=== PATIENT | male | born 1950 | race Caucasian/White ===

== ENCOUNTER 2017-07-18 16:17 | Emergency (ER) | payer OTHER ==
[2017-07-18] MEDS ORDERED: ONDANSETRON HCL 4 MG/2 ML VIAL ONE ×2 (16:41→17:39)
[2017-07-18 17:07] LABS: BASOPHILS % (AUTO) 0.2 % (0.0-5.0); EOSINOPHILS % (AUTO) 1.1 % (0.0-8.0); HEMATOCRIT 39.3 % (42-54); LYMPHOCYTES % (AUTO) 12.4 % (21.0-51.0); MEAN CORPUSCULAR HEMOGLOBIN 28.1 pg (27.0-33.0); MEAN CORPUSCULAR VOLUME 82.7 fL (79-99); MONOCYTES % (AUTO) 3.7 % (3.0-13.0); NEUTROPHILS % (AUTO) 82.6 % (40.0-77.0); PLATELET COUNT (AUTO) 203 K/uL (130-400); RED BLOOD CELL COUNT(AUTO) 4.76 MIL/uL (4.50-6.20); RED CELL DISTRIBUTION WIDTH 15.7 % (11.0-15.5); WHITE BLOOD COUNT (AUTO) 9.8 K/uL (4.8-10.8)
[2017-07-18 17:15] LABS: CREATININE 0.8 mg/dL (0.5-1.5); POTASSIUM 3.8 mmol/L (3.5-5.1)
[2017-07-18 17:17] LABS: PARTIAL THROMBOPLASTIN TIME 26.6 SEC (26.3-35.5); PROTHROMBIN TIME 10.5 SEC (9.6-11.6)
[2017-07-18 17:17] LABS: APPEARANCE,URINE Clear (CLEAR); BILIRUBIN,URINE Negative (NEGATIVE); COLOR,URINE Yellow (YELLOW); GLUCOSE, URINE (UA) Negative (NEGATIVE); KETONES,URINE Trace mg/dL (NEGATIVE); LEUKOCYTE ESTERASE ,URINE Negative (NEGATIVE); NITRATE,URINE Negative (NEGATIVE); OCCULT BLOOD,URINE Negative (NEGATIVE); PH,URINE 8.5 (5.0-8.0); PROTEIN,URINE POS 2+ (NEGATIVE); UROBILINOGEN,URINE 0.2 mg/dL (0.2-1.0)
[2017-07-18 17:28] LABS: ALBUMIN 4.7 g/dL (3.5-5.0); BILIRUBIN,TOTAL 0.5 mg/dL (0.2-1.0); CREATINE KINASE MB 1.3 ng/mL (0.5-3.6); TOTAL PROTEIN, SERUM 9.2 g/dL (6.0-8.3)
[2017-07-18] MEDS ORDERED: DiphenhydrAMINE HCL 50 MG/ML VIAL ONE (17:38)
[2017-07-18] MEDS ORDERED: METOCLOPRAMIDE 10 MG TABLET ONE (17:39)
[2017-07-18 17:41] LABS: BACTERIA,URINE Rare /HPF (None Seen); RBC,URINE 0-1 /HPF (0-1); SQUAMOUS EPITHELIAL CELL,UR Rare /LPF (0-2); WBC,URINE 0-1 /HPF (0-1)
[2017-07-18] MEDS ORDERED: KETOROLAC TROMETHAMINE 15MG/ML ONE (18:45)
[2017-07-18] MEDS ORDERED: MORPHINE SULFATE 2 MG/ML 1ML SYG ONE (18:45)
== END 2017-07-18 21:48 | disposition home or self-care (01) ==
LOC: EDH 16:17
DX: R51 Headache (principal); R11.2 Nausea with vomiting, unspecified; E11.9 Type 2 diabetes mellitus without complications; I25.10 Atherosclerotic heart disease of native coronary artery without angina pectoris; E78.5 Hyperlipidemia, unspecified; Z79.84 Long term (current) use of oral hypoglycemic drugs; Z79.899 Other long term (current) drug therapy; Z87.891 Personal history of nicotine dependence
CPT/HCPCS: 36415; 70450; 80053; 81001; 82150; 82550; 82553; 84484; 85025; 85610; 85730; 87804 ×2; 93005; 96374; 96375; 96376; 99285; J1200; J1885; J2405 ×2

== ENCOUNTER 2018-12-18 17:20 | Inpatient (IN) | payer MEDICARE ==
[~2018-12-18] VITALS: Ht 175.3 cm; Wt 66.0 kg
[2018-12-18] MEDS ORDERED: NITROGLYCERIN 0.4 MG SL TAB SL ONE (17:38)
[2018-12-18 17:44] LABS: BASOPHILS % (AUTO) 0.7 % (0.0-5.0); EOSINOPHILS % (AUTO) 4.6 % (0.0-8.0); HEMATOCRIT 35.5 % (42-54); LYMPHOCYTES % (AUTO) 30.5 % (21.0-51.0); MEAN CORPUSCULAR HEMOGLOBIN 29.5 pg (27.0-33.0); MEAN CORPUSCULAR HGB CONC 33.5 g/dL (32.0-36.0); MEAN CORPUSCULAR VOLUME 88.1 fL (79-99); MONOCYTES % (AUTO) 9.3 % (3.0-13.0); NEUTROPHILS % (AUTO) 54.9 % (40.0-77.0); NUCLEATED RED BLOOD CELLS 0.1 % (0.0-0.19); PLATELET COUNT (AUTO) 176 K/uL (130-400); RED BLOOD CELL COUNT(AUTO) 4.03 MIL/uL (4.50-6.20); RED CELL DISTRIBUTION WIDTH 13.5 % (11.0-15.5); WHITE BLOOD COUNT (AUTO) 5.5 K/uL (4.8-10.8)
[2018-12-18] MEDS ORDERED: ACETAMINOPHEN 325 MG TAB ONE (17:47)
[2018-12-18] MEDS ORDERED: ASPIRIN 325 MG TABLET ONE (17:53)
[2018-12-18 18:05] LABS: CREATININE 0.9 mg/dL (0.5-1.5)
[2018-12-18 18:08] LABS: INR 1.01 (0.85-1.15); PROTHROMBIN TIME 10.6 SEC (9.6-11.6)
[2018-12-18 18:16] LABS: ALBUMIN 3.9 g/dL (3.5-5.0); BILIRUBIN,TOTAL 0.4 mg/dL (0.2-1.0); TOTAL PROTEIN, SERUM 7.6 g/dL (6.0-8.3)
[2018-12-18 18:21] LABS: PARTIAL THROMBOPLASTIN TIME 28.7 SEC (26.3-35.5)
[2018-12-18 18:50] LABS: B-TYPE NATRIURETIC PEPTIDE 59 pg/mL (0-100)
[2018-12-18 19:30] LABS: APPEARANCE,URINE Clear (CLEAR); BILIRUBIN,URINE Negative (NEGATIVE); COLOR,URINE Yellow (YELLOW); GLUCOSE, URINE (UA) Negative (NEGATIVE); KETONES,URINE Negative (NEGATIVE); LEUKOCYTE ESTERASE ,URINE Moderate (NEGATIVE); NITRATE,URINE Negative (NEGATIVE); OCCULT BLOOD,URINE Negative (NEGATIVE); PH,URINE 6.5 (5.0-8.0); PROTEIN,URINE Negative (NEGATIVE)
[2018-12-18 19:37] LABS: AMPHET/METH SCREEN,URINE NEGATIVE (NEGATIVE); BARBITURATE SCREEN, URINE NEGATIVE (NEGATIVE); BENZODIAZEPINES SCREEN,URINE NEGATIVE (NEGATIVE); CANNABINOID SCREEN,URINE NEGATIVE (NEGATIVE); COCAINE SCREEN,URINE NEGATIVE (NEGATIVE); OPIATE SCREEN,URINE NEGATIVE (NEGATIVE); PHENCYCLIDINE SCREEN,URINE NEGATIVE (NEGATIVE)
[2018-12-18 20:04] LABS: BACTERIA,URINE Rare /HPF (None Seen); RBC,URINE 0-1 /HPF (0-1)
[2018-12-18 20:05] LABS: SQUAMOUS EPITHELIAL CELL,UR Rare /HPF (0-2)
[2018-12-18] MEDS ORDERED: ENOXAPARIN SODIUM 100 MG/1 ML SQ ONE (21:13)
[2018-12-18] MEDS ORDERED: HYDRALAZINE HCL 20 MG/ML VIAL IV PRN (23:15)
[2018-12-18] MEDS ORDERED: MORPHINE SULFATE 2 MG/ML 1ML SYG IV PRN (23:15)
[2018-12-18] MEDS ORDERED: MORPHINE SULFATE 4 MG/1ML SYG IV PRN (23:15)
[2018-12-18 23:58] LABS: CREATINE KINASE, TOTAL 178 U/L (21-232); MYOGLOBIN 50 ng/mL (10-92); TROPONIN I < 0.04 ng/mL (0.00-0.06)
[2018-12-19] VITALS (8 sets, daily range): BP systolic 113–173; BP diastolic 65–89
[2018-12-19] MEDS ORDERED: NITROGLYCERIN 0.4 MG SL TAB SL PRN
--- NOTE | 2018-12-19 00:10 | NUR ---
Admission Assessment Received pt from ED with no family around for Unstable Angina. Routine admission assessment done, plan of care discuss & updated with all the test & radiologic studies done in ED. Pt made aware he is pending to be seen by a supervisory geographer, Dr. Oscar Cortes. I verified with pt is he has his own supervisory geographer, stated he can't remember the name one from [place]. Pt claimed started to have chest pain, pressure unto the chest area around 1600 that does not want to go away reason of coming in, as he claimed prior to his CABG in the past same chest pain he had felt. Pt reminded to remain NPO for now in case he will need some procedure later during the day, agreed. Pt currently denies discomfort.
[2018-12-19] MEDS: SODIUM CHLORIDE 0.9% 1000ML 1,000 ML IV SCH ×2 (00:44→19:11)
[2018-12-19] MEDS ORDERED: AEC81 PO (01:46)
[2018-12-19] MEDS ORDERED: ACET-2743 PO (01:46)
[2018-12-19] MEDS ORDERED: ATOR10TA69 PO (01:46)
[2018-12-19] MEDS ORDERED: METF-444 PO (01:46)
[2018-12-19 02:05] LABS: BASOPHILS % (AUTO) 0.7 % (0.0-5.0); EOSINOPHILS % (AUTO) 5.4 % (0.0-8.0); HEMATOCRIT 37.2 % (42-54); LYMPHOCYTES % (AUTO) 35.7 % (21.0-51.0); MEAN CORPUSCULAR HEMOGLOBIN 29.6 pg (27.0-33.0); MEAN CORPUSCULAR HGB CONC 33.9 g/dL (32.0-36.0); MEAN CORPUSCULAR VOLUME 87.2 fL (79-99); MONOCYTES % (AUTO) 9.8 % (3.0-13.0); NEUTROPHILS % (AUTO) 48.4 % (40.0-77.0); NUCLEATED RED BLOOD CELLS 0.1 % (0.0-0.19); PLATELET COUNT (AUTO) 177 K/uL (130-400); RED BLOOD CELL COUNT(AUTO) 4.27 MIL/uL (4.50-6.20); RED CELL DISTRIBUTION WIDTH 13.5 % (11.0-15.5)
[2018-12-19 02:30] LABS: ALANINE AMINOTRANSFERASE 20 U/L (12-78); ALBUMIN 3.8 g/dL (3.5-5.0); ASPARTATE AMINOTRANSFERASE 19 U/L (10-37); BILIRUBIN,TOTAL 0.4 mg/dL (0.2-1.0); CARBON DIOXIDE 30 mmol/L (21-32); CHLORIDE 103 mmol/L (101-111); CREATINE KINASE, TOTAL 176 U/L (21-232); CREATININE 0.7 mg/dL (0.5-1.5); GLOMERULAR FILTR. RATE CALC 120 mL/min (>60); GLUCOSE,RANDOM 93 mg/dL (70-105); MYOGLOBIN 50 ng/mL (10-92); POTASSIUM 4.3 mmol/L (3.5-5.1); SODIUM SERUM 139 mmol/L (136-145); TOTAL PROTEIN, SERUM 7.6 g/dL (6.0-8.3); TROPONIN I < 0.04 ng/mL (0.00-0.06); UREA NITROGEN, BLOOD 13 mg/dL (7-18)
--- NOTE | 2018-12-19 07:35 | NUR ---
ASSESSMENT ENCOUNTERED PT A&OX 4, CALM COOPERATIVE AND DOES NOT APPEAR TO BE IN ANY DISTRESS NOR ANY NEURO DEFICITS PRESENT. PT DENIES PAIN, SOB, NAUSEA. PT IS AMBULATORY, GAIT STEADY AND STRONG WITH STAND BY ASSIST. PT IS NPO FOR POSSIBLE LEXISCAN. CALL LIGHT WITHIN REACH.
[2018-12-19] MEDS: FAMOTIDINE/PF 20 MG/2 ML VIAL IV SCH ×2 (09:00→21:37)
[2018-12-19] MEDS ORDERED: ASPIRIN 325 MG TABLET PO SCH (09:00)
[2018-12-19] MEDS: ATORVASTATIN CALCIUM 40 MG TABLET PO SCH ×2 (09:00→21:36)
[2018-12-19] MEDS ORDERED: METOPROLOL TARTRATE 25 MG TAB PO SCH (09:00)
[2018-12-19] MEDS: ASPIRIN 81MG TAB.CHEW PO SCH ×2 (10:00→21:36)
[2018-12-19 10:27] LABS: CREATINE KINASE, TOTAL 150 U/L (21-232); MYOGLOBIN 52 ng/mL (10-92); TROPONIN I < 0.04 ng/mL (0.00-0.06)
[2018-12-19] MEDS ORDERED: REGADENOSON 0.4 MG/5 ML PF SYG IVP ONE (13:00)
[2018-12-19] MEDS ORDERED: GLUCAGON 1MG KIT 1 MG ML IM PRN (20:00)
[2018-12-19] MEDS ORDERED: DEXTROSE 50%-WATER 50 ML DISP.SYRIN IV PRN (20:00)
[2018-12-19] MEDS: INSULIN HUMULIN R 100 UNIT/ML 3ML SQ SCH (21:00)
[2018-12-20 04:31] VITALS: BP 127/73
[2018-12-20] MEDS: INSULIN HUMULIN R 100 UNIT/ML 3ML SQ SCH (05:25)
--- NOTE | 2018-12-20 07:30 | NUR ---
ASSESSMENT ENCOUNTERED PT A&OX3, CALM COOPERATIVE AND DOES NOT APPEAR TO BE IN ANY DISTRESS NOR ANY NEURO DEFICITS PRESENT. PT DENIES PAIN, SOB, NAUSEA. PT IS AMBULATORY, GAIT STEADY AND STRONG WITH STAND BY ASSIST. CALL LIGHT WITHIN REACH, FAMILY AT BEDSIDE.
[2018-12-20 07:39] VITALS: BP 137/79
--- NOTE | 2018-12-20 09:00 | NUR ---
DR BARAHONA AT BEDSIDE UPDATE GIVEN, ORDERS RECEIVED
--- NOTE | 2018-12-20 09:15 | NUR ---
DR HADDAD UPDATED ORDERS RECEIVED.
--- NOTE | 2018-12-20 10:00 | NUR ---
DISCHARGE INSTRUCTIONS GIVEN, PIV REMOVED AND INTACT, DISCHARGED HOME TO FAMILY VEHICLE VIA WHEELCHAIR.
== END 2018-12-20 10:24 | disposition home or self-care (01) | DRG 303 ==
LOC: EDH 17:20 → EDHIP 23:11 → INTOOBSV 23:11 → OBSVTOIN 23:11 → 2AH 23:59
PROVIDERS: ADMIT Hospitalist; ATTEND Hospitalist
DX: I25.110 Atherosclerotic heart disease of native coronary artery with unstable angina pectoris (principal); E87.1 Hypo-osmolality and hyponatremia; I10 Essential (primary) hypertension; E11.65 Type 2 diabetes mellitus with hyperglycemia; D64.9 Anemia, unspecified; E78.5 Hyperlipidemia, unspecified; I45.10 Unspecified right bundle-branch block; I95.9 Hypotension, unspecified; Z82.3 Family history of stroke; Z87.891 Personal history of nicotine dependence; Z95.1 Presence of aortocoronary bypass graft; Z79.84 Long term (current) use of oral hypoglycemic drugs; Z79.899 Other long term (current) drug therapy; Z79.82 Long term (current) use of aspirin
CPT/HCPCS: 36415; 71045; 78452; 80053; 80305; 81001; 82550; 82948; 83036; 83874; 83880; 84484; 85025; 85610; 85730; 93005; 93017; 96374; 99291; A9500; G0378; J1650; J2785; J3490; J7030

== ENCOUNTER 2019-02-05 07:33 | Day surgery (SDC) | payer MEDICARE ==
[2019-02-03 11:48] VITALS: BP 150/78
[2019-02-03 11:50] LABS: BASOPHILS % (AUTO) 0.3 % (0.0-5.0); EOSINOPHILS % (AUTO) 4.6 % (0.0-8.0); HEMATOCRIT 36.4 % (42-54); LYMPHOCYTES % (AUTO) 26.1 % (21.0-51.0); MEAN CORPUSCULAR HEMOGLOBIN 29.4 pg (27.0-33.0); MEAN CORPUSCULAR HGB CONC 33.6 g/dL (32.0-36.0); MEAN CORPUSCULAR VOLUME 87.7 fL (79-99); MONOCYTES % (AUTO) 10.6 % (3.0-13.0); NEUTROPHILS % (AUTO) 58.4 % (40.0-77.0); NUCLEATED RED BLOOD CELLS 0.1 % (0.0-0.19); PLATELET COUNT (AUTO) 172 K/uL (130-400); RED BLOOD CELL COUNT(AUTO) 4.15 MIL/uL (4.50-6.20); RED CELL DISTRIBUTION WIDTH 13.7 % (11.0-15.5); WHITE BLOOD COUNT (AUTO) 5.7 K/uL (4.8-10.8)
[2019-02-03 11:51] LABS: APPEARANCE,URINE Clear (CLEAR); BILIRUBIN,URINE Negative (NEGATIVE); COLOR,URINE Yellow (YELLOW); GLUCOSE, URINE (UA) Negative (NEGATIVE); KETONES,URINE Negative (NEGATIVE); LEUKOCYTE ESTERASE ,URINE Large (NEGATIVE); NITRATE,URINE Positive (NEGATIVE); OCCULT BLOOD,URINE Negative (NEGATIVE); PH,URINE 6.5 (5.0-8.0); PROTEIN,URINE Negative (NEGATIVE)
[2019-02-03 11:56] LABS: CREATININE 0.8 mg/dL (0.5-1.5); POTASSIUM 5.2 mmol/L (3.5-5.1)
[2019-02-03 11:56] LABS: BACTERIA,URINE Many /HPF (None Seen); RBC,URINE 0-1 /HPF (0-1); SQUAMOUS EPITHELIAL CELL,UR Rare /HPF (0-2)
[2019-02-03 12:04] LABS: INR 0.98 (0.85-1.15); PARTIAL THROMBOPLASTIN TIME 26.8 SEC (26.3-35.5); PROTHROMBIN TIME 10.3 SEC (9.6-11.6)
--- NOTE | 2019-02-04 14:41 | NUR ---
Spoke to Rafy KLINE and reported potassium of 5.2 and ua of positive nitrates, large leukest and wbc 11-25 and many bacteria, as per Rafy Marcum no order in regards to urine since procedure will be radial and new order for potassium level in morning of procedure.
[~2019-02-05] VITALS: Ht 175.3 cm; Wt 69.3 kg
[2019-02-05] VITALS (8 sets, daily range): BP systolic 110–146; BP diastolic 54–74
[~2019-02-05 07:33] MED LIST: AEC81 PO; ATOR20TA65 PO; LORA10TA7 PO; METF-444 PO; SODIUM CHLORIDE 0.9% 500ML 500 ML IV SCH
[2019-02-05] MEDS ORDERED: NITROGLYCERIN 5 MG/ML 10 ML VIAL IV ONE (08:59)
[2019-02-05] MEDS ORDERED: HEPARIN SODIUM 1000UNIT/ML 10ML VIAL ONE (08:59)
[2019-02-05] MEDS ORDERED: IOHEXOL 350 MG/ML 100ML INFUS..BTL IV ONE ×2 (08:59→12:48)
[2019-02-05] MEDS ORDERED: IOHEXOL-350 50ML VIAL IV ONE (08:59)
[2019-02-05] MEDS ORDERED: LIDOCAINE HCL 2% 20ML ONE (08:59)
[2019-02-05] MEDS ORDERED: VERAPAMIL HCL 2.5 MG/ML VIAL ONE (09:12)
--- NOTE | 2019-02-05 11:11 | NUR ---
PT LEFT VIA BED TO GORE CUTTER
[2019-02-05] MEDS ORDERED: MIDAZOLAM HCL 1 MG/ML 2ML VIAL ONE (11:59)
[2019-02-05] MEDS ORDERED: FENTANYL CITRATE PF 50 MCG/1 ML 2ML VIAL ONE (11:59)
[2019-02-05] MEDS ORDERED: SODIUM CHLORIDE 0.9% 1000ML 1,000 ML IV SCH (13:22)
--- NOTE | 2019-02-05 14:00 | NUR ---
PT C/O SEEING BLURRY AND SPOTS. DR. WARREN PAGED
--- NOTE | 2019-02-05 14:08 | NUR ---
PAGED CHIQUIS KLINE, D/T NO CALL BACK FROM DR. WARREN. SPOKE TO CHIQUIS KLINE HE IS AWARE PATIENT IS SEEING BLURRY AND SEEING SPOTS. NEURO CHECKS WERE DONE AND WERE NEGATIVE. NO NEW ORDERS AT THIS TIME.
--- NOTE | 2019-02-05 14:13 | NUR ---
PT. STATE BLURRINESS IS RESOLVED. WILL CONTINUE TO MONITOR.
--- NOTE | 2019-02-05 14:40 | NUR ---
DR. GARNER CAME TO SEE PT. IS AWARE OF PT SYMPTOMS OF BLURRINESS AND SPOTS IN VISION AND ARE NOW RESOLVED. DR. GARNER ALSO CHANGED THE IV FLUIDS FROM 4 HRS TO 2 HRS.
--- NOTE | 2019-02-05 14:50 | NUR ---
PT. IS RESTING WELL SITE IS DRY AND INTACT. TR BAND IS APPLIED ON THE LEFT WRIST WITH 14 CC OF AIR. 2 CC HAS BEEN REMOVED. V/S STABLE NO BLEEDING WILL CONTINUE TO MONITOR.
--- NOTE | 2019-02-05 15:10 | NUR ---
PT . TR BAND IS DRY AND INTACT REMOVED 2 CC OF AIR. V/S ARE STABLE WILL CONTINUE TO MONITOR.
--- NOTE | 2019-02-05 15:25 | NUR ---
REMOVED 2 ML FROM TR BAND SITE IS DRY AND INTACT, WILL CONTINUE TO MONITOR PATIENT.
--- NOTE | 2019-02-05 19:44 | NUR ---
PT AAOX3 , NO C/O PAIN TO CATH SITE. SITE TO LT WRIST IS D/I NO ACTIVE BLEEDING OR HEMATOMA. PT STABLE. PT AND GIVE POST CARE INSTRUCTIONS BY CHEY TREVINO. BOTH VERBALIZED UNDERSTANDING. PT DRESSED BY BEDSIDE, PLACED IN WHEELCHAIR AND DRIVEN HOME BY .
== END 2019-02-05 17:30 | disposition home or self-care (01) ==
LOC: DAH 07:33
PROVIDERS: ATTEND Internal Medicine Cardiovascular Disease
DX: I25.118 Atherosclerotic heart disease of native coronary artery with other forms of angina pectoris (principal); Z79.84 Long term (current) use of oral hypoglycemic drugs; Z79.82 Long term (current) use of aspirin; Z79.899 Other long term (current) drug therapy; Z87.891 Personal history of nicotine dependence; Z82.49 Family history of ischemic heart disease and other diseases of the circulatory system; Z83.3 Family history of diabetes mellitus; Z85.9 Personal history of malignant neoplasm, unspecified
CPT/HCPCS: 36415 ×2; 71045; 80048; 81001; 82948 ×2; 84132; 85025; 85610; 85730; 93005; 93455; A4215; A4216; A4221; A4222; A4223 ×3; A4606; C1769; C1894 ×2; J1644 ×2; J2250; J3010; J3490 ×3; Q9965 ×3; Q9967 ×3; 99152; 99153; 99156; 99157

== ENCOUNTER → 2021-05-11 | Outpatient (CLI) | payer MEDICARE ==
[~2021-05-11] MED LIST changes: -SODIUM CHLORIDE 0.9% 500ML 500 ML IV SCH
== END | disposition home or self-care (01) ==
LOC: OIH 15:36
PROVIDERS: ATTEND Internal Medicine Cardiovascular Disease
DX: I51.7 Cardiomegaly (principal); I25.10 Atherosclerotic heart disease of native coronary artery without angina pectoris; E11.9 Type 2 diabetes mellitus without complications; E78.5 Hyperlipidemia, unspecified; Z95.1 Presence of aortocoronary bypass graft
CPT/HCPCS: 93306; 93356